=== PATIENT | male | born 1960 | race Caucasian/White ===

== ENCOUNTER 2021-02-23 21:05 | Emergency (ER) | payer OTHER ==
[2021-02-23 21:14] VITALS: BP 126/71; PULSE 78; TEMP 99; BMI 27.7
[2021-02-23] MEDS ORDERED: AMOXICILLIN 500 MG CAPSULE (FP) PO ONE (21:29)
[2021-02-23] MEDS ORDERED: AMOXICILLIN 250 MG CAPSULE ONE (21:32)
== END 2021-02-23 21:40 | disposition home or self-care (01) ==
LOC: FER 21:05
DX: K04.7 Periapical abscess without sinus (principal)
CPT/HCPCS: 99283-25